=== PATIENT | female | born 1975 | race Caucasian/White ===

== ENCOUNTER 2017-11-25 18:52 | Emergency (ER) | payer BC ==
[2017-11-25 19:56] LABS: #Basophils 0.1 thou/uL (0.0-0.2); #Eosinphils 0.1 thou/uL (0.0-0.7); #Lymphocytes 2.7 thou/uL (1.20-3.40); #Monocytes 0.6 thou/uL (0.11-0.59); #Neutrophils 6.1 thou/uL (1.40-6.50); %Basophils 0.9 % (0.0-1.0); %Eosinophils 0.7 % (0.0-10.0); %Lymphocytes 28.1 % (21.0-51.0); %Monocytes 6.5 % (0.0-10.0); %Neutrophils 63.7 % (42.0-75.0); Hemoglobin 14.6 g/dL (12.0-16.0); Mean Corpuscular HGB CONC 34.5 g/dL (32.0-36.0); Mean Corpuscular Hemoglobin 30.6 pg (27.0-31.0); Mean Corpuscular Volume 88.8 fl (81.0-99.0); Mean Platelet Volume 6.3 fL (7.4-10.4); Platelet Count 332 thou/uL (130-400); Red Blood Cell (RBC) Count 4.75 mill/uL (4.20-5.40); White Blood Cell (WBC) Count 9.6 thou/uL (4.8-10.8)
[2017-11-25 20:03] LABS: BHCG - Serum Negative (NEGATIVE); Pregs Control Background? CLEAR/WHITE (CLR/WHITE); Pregs Control Bar Appear? YES (CONTROL BAR)
[2017-11-25 20:12] LABS: ALT (SGPT) 14 U/L (8-55); AST (SGOT) 14 U/L (5-34); Albumin 4.5 g/dL (3.5-5.0); Alkaline Phosphatase 55 U/L (40-150); Anion Gap 20 mmol/L (10-20); BUN (Urea Nitrogen) 7 mg/dL (7.0-18.7); Bilirubin, Total 0.5 mg/dL (0.2-1.2); Calc. Creatinine Clearance 0 mL/min (70-130); Calcium 9.9 mg/dL (7.8-10.44); Carbon Dioxide 17 mmol/L (22-29); Chloride 106 mmol/L (98-107); Estimated GFR-MDRD 65; Globulin 3.6 g/dL (2.4-3.5); Glucose 97 mg/dL (70-105); Potassium 3.5 mmol/L (3.5-5.1); Protein, Total 8.1 g/dL (6.0-8.3); Sodium 139 mmol/L (136-145)
[2017-11-25 20:28] LABS: Thyroid Stimulating Hormone 4.6079 uIU/mL (0.35-4.94)
== END 2017-11-25 20:57 | disposition home or self-care (01) ==
LOC: SCSER 18:52
DX: F41.0 Panic disorder [episodic paroxysmal anxiety] (principal); G43.909 Migraine, unspecified, not intractable, without status migrainosus; Z79.899 Other long term (current) drug therapy
CPT/HCPCS: 36415; 80053; 84443; 84703; 85025; 93005

== ENCOUNTER 2017-12-24 15:08 | Outpatient (CLI) | payer BC ==
[~2017-12-24 15:08] MED LIST: Magnevist 469MG/ML 20 ML VIAL ONE
--- NOTE | 2017-12-24 16:22 | MRI ---
EXAM: BRAIN MRI WITH AND WITHOUT CONTRAST 12/24/17 HISTORY: Chronic migraine headache without aura. COMPARISON: None. TECHNIQUE: Brain MRI is performed with and without intravenous gadolinium administration. Multisequential, multi planar imaging is performed. FINDINGS: No hemorrhage on the axial gradient echo sequence. No parenchymal mass, mass effect or midline shift. Brain volume is age appropriate. Cortical birmingham-whi te matter differentiation is preserved. Ventricles and sulci are patent and symmetric. Central arterial flow voids are maintained. Absent restricted diffusion. Calvarium has an appropriate T1 marrow signal intensity. Midline parenchymal structures are unremarka ble. No significant T2 or FLAIR white matter hyperintensities. Adequate aeration of the sinuses and mastoid air cells. No pathologic enhancement of the brain parenc hyma. On the sagittal postcontrast images, the pituitary gland has a slight convexed appearance and measure s 7 mm in the craniocaudal dimension. If there is concern for microadenoma, dedicated pituitary olesya col MRI is recommended. IMPRESSION: 1. No pathologic enhancement of the brain parenchyma. 2. No abnormal white matter hyperintensity. 3. Fullness of the pituitary gland, atypical for a patient of this age. If there is concern for a microadenoma, consider MRI with pituitary gland protocol. POS: [facility]
== END 2017-12-24 15:09 | disposition home or self-care (01) ==
LOC: SCSMRI 15:08
PROVIDERS: ATTEND Psychiatry & Neurology Neurology
DX: G43.719 Chronic migraine without aura, intractable, without status migrainosus (principal); R47.89 Other speech disturbances; E23.6 Other disorders of pituitary gland
CPT/HCPCS: 70553; A9579

== ENCOUNTER 2018-01-21 10:24 | Outpatient (CLI) | payer BC ==
--- NOTE | 2018-01-21 15:35 | MRI ---
PRE AND POSTCONTRAST ENHANCED MRI IMAGES OF PITUITARY: HISTORY: Fullness seen on patient's recent MRI of the brain of the pituitary. FINDINGS: Multiplanar, multisequence pre- and postcontrast-enhanced MRI images of the pituitary are obtained. As noted by the radiation / chemistry technician from Dr. Hickey, there is some fullness seen in the pituitary. High-resolu tion pituitary images demonstrate no evidence of pituitary masses. No abnormal areas of heterogeneit y seen in the pituitary. No signal abnormalities seen on the T2 weighted coronal sequences. No abno rmality is seen in the anterior posterior pituitary region. The pituitary infundibulum is unremarkab le. POS: [facility]
== END 2018-01-21 10:25 | disposition home or self-care (01) ==
LOC: SCSMRI 10:24
PROVIDERS: ATTEND Psychiatry & Neurology Neurology
DX: E23.7 Disorder of pituitary gland, unspecified (principal)
CPT/HCPCS: 70553

== ENCOUNTER 2018-03-31 12:59 | Outpatient (CLI) | payer BC ==
--- NOTE | 2018-03-31 16:23 | ULT ---
RIGHT AXILLARY ULTRASOUND: HISTORY: The patient has been diagnosed with invasive ductal carcinoma. Right axillary tenderness and pain. COMPARISON: None. CORRELATION: Mammograms and ultrasound performed at [facility] [place] in March 2018. TECHNIQUE: Targeted sonographic imaging of the right axilla was performed. Static images were reviewed. Real-t chester imaging was performed in the presence of the radiologist and by the radiologist. FINDINGS: Static real-time images demonstrate soft tissue echotexture. There is a right axillary lymph node me asuring 2 cm in maximum dimension with a well preserved fatty hilum. No evidence of abnormal lymph n odes/enlarged lymph nodes in the right axilla. IMPRESSION: Unremarkable right axillary ultrasound. POS: [facility]
== END 2018-03-31 13:00 | disposition home or self-care (01) ==
LOC: ULT 12:59
PROVIDERS: ATTEND Internal Medicine Hematology & Oncology
DX: C50.611 Malignant neoplasm of axillary tail of right female breast (principal)
CPT/HCPCS: 76999

== ENCOUNTER 2018-04-01 09:26 | Outpatient (CLI) | payer BC ==
[2018-04-01] MEDS ORDERED: Iopamidol 370 76% 100 ML VIAL ONE (11:15)
--- NOTE | 2018-04-01 12:13 | CT ---
CT OF THE CHEST WITH IV CONTRAST CT OF THE ABDOMEN AND PELVIS WITH IV CONTRAST: Date: 04-01-18 Provided Clinical History: Breast cancer. FINDINGS: There is a 2.3 cm enhancing right breast mass medially which may reflect the provided clinical histor y of breast cancer. The heart, pericardium, and great vessels appear unremarkable. There is no evidence for thoracic lymp h node enlargement. The lungs are free of significant opacity. The airway appears patent and of tresa l caliber. No pleural fluid or pneumothorax apparent. The liver, spleen, pancreas, kidneys, and adrenal glands demonstrate an unremarkable CT appearance. There is no bowel dilatation, inflammatory fat stranding, free fluid or lymph node enlargement appare nt. Physiologic changes involve the uterus and adnexa. Occasional vascular calcifications are seen. The osseous structures demonstrate no concerning osteoblastic or osteolytic lesions. IMPRESSION: 1. Right breast mass may reflect the provided clinical history of breast cancer. There is no evidence for metastatic disease by CT. POS: [facility]
--- NOTE | 2018-04-01 15:06 | NM ---
RADIONUCLIDE BONE SCAN: HISTORY: Breast cancer. Initial staging. FINDINGS: Heterogeneous uptake at the right foot and left forefoot have the appearance of degenerative changes. Uptake at the right great toe is much more likely related to trauma or arthritis than metastatic pr ocess. Heterogeneous uptake of the shoulders and hips have the appearance of degenerative changes. Subtle u ptake at the midline face is likely related to mucosal disease. IMPRESSION: No scintigraphic evidence of skeletal metastases. POS: [facility]
== END 2018-04-01 09:27 | disposition home or self-care (01) ==
LOC: CT 09:26
PROVIDERS: ATTEND Internal Medicine Hematology & Oncology
DX: C50.811 Malignant neoplasm of overlapping sites of right female breast (principal)
CPT/HCPCS: 71260; 74177; 78306; A9503

== ENCOUNTER 2018-04-07 08:27 | Day surgery (SDC) | payer BC ==
[2018-04-07] MEDS ORDERED: Lidocaine 2% 10 ML INJ ONE (10:07)
[2018-04-07] MEDS ORDERED: Bupivacaine/Epinephrine 0.25% 30 ML VIAL ONE (10:07)
[2018-04-07] MEDS ORDERED: Midazolam HCl 2 mg/2 ml Vial ONE ×2 (10:09→10:13)
[2018-04-07] MEDS ORDERED: Propofol 500 MG/50 ML VIAL ONE (10:09)
[2018-04-07] MEDS ORDERED: Fentanyl 100 MCG/2 ML VIAL ONE (10:09)
[2018-04-07] MEDS ORDERED: CEFAZOLIN/Water 2 GM/20 ML SYRINGE ONE (10:13)
--- NOTE | 2018-04-07 12:30 | RAD ---
CHEST ONE VIEW: History: Mediport placement. FINDINGS: Heart size is within normal limits. Mediastinal structures are unremarkable. Left sided Mediport cath eter is seen. The catheter tip overlies the superior vena cava. No signs of pneumothorax. IMPRESSION: Placement of a left sided Mediport catheter. No signs of pneumothorax. POS: [facility]
[2018-04-07] MEDS ORDERED: PROPOFOL 200 MG/20 ML VIAL ONE (14:47)
--- NOTE | 2018-04-07 19:39 | OP ---
DATE OF PROCEDURE: 04/07/2018 PREOPERATIVE DIAGNOSIS: Right breast cancer, locally invasive, ER/NV positive, HER2/royer positive. POSTOPERATIVE DIAGNOSIS: Right breast cancer, locally invasive, ER/NV positive, HER2/royer positive. PROCEDURE: Left internal jugular vein tunneled catheter with subcutaneous port (MediPort, CT injecta ble). SURGEON: Tato Singletary MD ANESTHESIA: Local. None. COMPLICATIONS: None. SPECIMEN: None. FINDINGS: The tip of the catheter is at the atriocaval junction. PROCEDURE IN DETAIL: The patient was taken to the operating room, placed supine on the table. After sedation was obtained, bilateral neck, chest, abdomen, and breast were prepped and draped in a steri le fashion. Local anesthetic was infiltrated over the left internal jugular vein. Internal jugular vein cannulated using a 22-gauge finder needle followed by a Seldinger needle. Wire was passed into the superior vena cava under fluoroscopic guidance. A small vilma was made at the wire entrance site. A separate 3 cm incision was made in the left upper chest. Subcutaneous pocket made below the lowe r incision. Tubing for the MediPort tunneled from the inferior to superior incision. Introducer she ath was placed over the wire into the superior vena cava under fluoroscopic guidance. The dilator an d wire were removed. The end of the catheter was threaded into the sheath. The sheath was peeled aw ay. The tip of the catheter is at the atriocaval junction. MediPort tubing was cut to fit the MediP ort at the lower incision, connected to the MediPort. The MediPort was sewn to the chest wall in the subcutaneous pocket using Prolene suture. MediPort flushes and draws blood without difficulty. It was flushed with a heparin flush. The wounds were all irrigated and closed using 4-0 Monocryl and De rmabond. The MediPort was left accessed with the enclosed access needle. The patient is en route to recovery in stable condition. All instrument counts, needle counts, lap counts were correct.
== END 2018-04-07 11:55 | disposition home or self-care (01) ==
LOC: SDC 08:27
PROVIDERS: ATTEND Surgery
PROC: 0JH60WZ Insertion of Totally Implantable Vascular Access Device into Chest Subcutaneous Tissue and Fascia, Open Approach (ICD-10-PCS; principal; 2018-04-07)
PROC: 05HN33Z Insertion of Infusion Device into Left Internal Jugular Vein, Percutaneous Approach (ICD-10-PCS; principal; 2018-04-07)
PROC: B514YZA Fluoroscopy of Left Jugular Veins using Other Contrast, Guidance (ICD-10-PCS; principal; 2018-04-07)
DX: C50.911 Malignant neoplasm of unspecified site of right female breast (principal); G43.909 Migraine, unspecified, not intractable, without status migrainosus; F32.9 Major depressive disorder, single episode, unspecified; F41.9 Anxiety disorder, unspecified; J45.909 Unspecified asthma, uncomplicated; Z87.891 Personal history of nicotine dependence; Z88.8 Allergy status to other drugs, medicaments and biological substances; Z79.899 Other long term (current) drug therapy; Z17.0 Estrogen receptor positive status [ER+]
CPT/HCPCS: 71045; C1788; J1642; J2250; J2704; J3010

== ENCOUNTER 2018-04-12 08:51 | Outpatient (CLI) | payer BC | END 2018-04-12 08:52 | disposition home or self-care (01) | LOC: BICMRI 08:51 | PROVIDERS: ATTEND Internal Medicine Hematology & Oncology | DX: C50.811 Malignant neoplasm of overlapping sites of right female breast (principal) | CPT/HCPCS: C8908 ==

== ENCOUNTER 2018-04-20 13:45 | Outpatient (CLI) | payer BC | END 2018-04-20 13:46 | disposition home or self-care (01) | LOC: ULT 13:45 | PROVIDERS: ATTEND Internal Medicine Hematology & Oncology | DX: Z51.11 Encounter for antineoplastic chemotherapy (principal); C50.811 Malignant neoplasm of overlapping sites of right female breast; Z79.899 Other long term (current) drug therapy; I08.1 Rheumatic disorders of both mitral and tricuspid valves | CPT/HCPCS: 93306 ==

== ENCOUNTER 2018-06-16 08:30 | Outpatient (CLI) | payer BC | END 2018-06-16 08:31 | disposition home or self-care (01) | LOC: BICULT 08:30 | PROVIDERS: ATTEND Internal Medicine Hematology & Oncology | DX: C50.811 Malignant neoplasm of overlapping sites of right female breast (principal) ==

== ENCOUNTER 2018-07-29 10:04 | Outpatient (CLI) | payer BC ==
[2018-07-29 11:54] LABS: #Basophils 0.1 thou/uL (0.0-0.2); #Eosinphils 0.3 thou/uL (0.0-0.7); #Lymphocytes 1.8 thou/uL (1.20-3.40); #Monocytes 0.4 thou/uL (0.11-0.59); #Neutrophils 3.2 thou/uL (1.40-6.50); %Basophils 1.8 % (0.0-1.0); %Eosinophils 4.8 % (0.0-10.0); %Lymphocytes 31.4 % (21.0-51.0); %Monocytes 7.2 % (0.0-10.0); %Neutrophils 54.8 % (42.0-75.0); Hemoglobin 12.4 g/dL (12.0-16.0); Mean Corpuscular HGB CONC 32.2 g/dL (32.0-36.0); Mean Corpuscular Hemoglobin 30.4 pg (27.0-31.0); Mean Corpuscular Volume 94.6 fL (78.0-98.0); Mean Platelet Volume 7.2 fL (7.4-10.4); Platelet Count 331 thou/uL (130-400); RBC Distribution Width 15.2 % (11.5-14.5); Red Blood Cell (RBC) Count 4.06 mill/uL (4.20-5.40); White Blood Cell (WBC) Count 5.8 thou/uL (4.8-10.8)
== END 2018-07-29 10:05 | disposition home or self-care (01) ==
LOC: LABBT 10:04
PROVIDERS: ATTEND Surgery
DX: Z01.812 Encounter for preprocedural laboratory examination (principal); C50.911 Malignant neoplasm of unspecified site of right female breast
CPT/HCPCS: 85025

== ENCOUNTER 2018-08-01 07:09 | Day surgery (SDC) | payer BC ==
[2018-07-29 10:55] VITALS: BMI 21.4
[2018-08-01] MEDS ORDERED: Sodium Chloride 0.9% 0 ML ONE (09:36)
[2018-08-01] MEDS ORDERED: CEFAZOLIN/Water 2 GM/20 ML SYRINGE ONE (10:18)
[2018-08-01] MEDS ORDERED: Bupivacaine/Epinephrine 0.25% 30 ML VIAL ONE (11:44)
--- NOTE | 2018-08-01 11:45 | NM ---
RIGHT BREAST LYMPHOSCINTIGRAPHY: HISTORY: Malignant neoplasm of unspecified site of the right female breast. RADIOPHARMACEUTICAL: 407 mCi Technetium 99m filtered sulfur colloid injected in the right periareolar breast. FINDINGS: Planar images of the head, neck, chest, and axillae were obtained. Multiple foci of increased uptake are seen in the right axilla. No tracer localization is seen in the internal mammary chains or the left axilla. IMPRESSION: [place] lymph node (S) in the right axilla. POS: [facility]
[2018-08-01] MEDS ORDERED: Fentanyl 100 MCG/2 ML VIAL ONE ×4 (11:46→15:04)
[2018-08-01] MEDS ORDERED: ePHEDrine/0.9% NaCl/PF SYRINGE 50 mg/10 ml ONE (12:34)
[2018-08-01] MEDS ORDERED: PROPOFOL 200 MG/20 ML VIAL ONE (12:34)
[2018-08-01] MEDS ORDERED: Ondansetron HCl/PF 4 MG/2 ML Vial ONE (12:34)
[2018-08-01] MEDS ORDERED: Lidocaine 1% PF 5 ML VIAL ONE (12:34)
[2018-08-01] MEDS ORDERED: PHENYLEPHRINE-NS 100 MCG/ML 10 ML SYRINGE ONE (12:34)
[2018-08-01] MEDS ORDERED: HYDROmorphone 2 MG/ML VIAL ONE (14:25)
--- NOTE | 2018-08-01 15:28 | MMO ---
SPECIMEN RADIOGRAPH: HISTORY: Localization of biopsy clip. COMPARISON: Localization exam done earlier today.. FINDINGS: The biopsy clip in question is present on the specimen radiograph. IMPRESSION: Biopsy clip which is present on the specimen radiograph. POS: [facility]
[2018-08-01] MEDS ORDERED: HYDROcodone/Acetaminophen 5/325 mg Tablet ONE (15:38)
--- NOTE | 2018-08-01 16:10 | MMO ---
RIGHT BREAST NEEDLE LOCALIZATION FOR SURGICAL EXCISION: COMPARISON: None. HISTORY: Known right breast cancer. The patient has undergone chemotherapy. FINDINGS: Successful right breast needle localization for surgery. The patient's breast is placed in the CC pr ojection. [place] needle and wire were deployed such that the needle and wire are adjacent to the clip . TECHNIQUE: Consent was obtained to perform a right breast needle localization. The clip was identified. Via th e medial approach, a 7 cm [place] needle was advanced adjacent to the clip. The right breast was then placed under CC compression. Clip position was confirmed and the wire was deployed. Post-deployment image was obtained. The needle and wire are adjacent to the clip. The clip was secured to the yinka ent. The patient tolerated the procedure well. No immediate or postprocedure complications. IMPRESSION: Successful right breast needle localization. POS: [facility]
--- NOTE | 2018-08-02 09:41 | OP ---
DATE OF PROCEDURE: 08/01/2018 PREOPERATIVE DIAGNOSIS: Right breast cancer, status post neoadjuvant chemotherapy. POSTOPERATIVE DIAGNOSIS: Right breast cancer, status post neoadjuvant chemotherapy. PROCEDURE: 1. Right partial mastectomy after needle localization. 2. Right sentinel node biopsy after lymphoscintigraphy. 3. Removal of MediPort. SURGEON: Tato Singletary M.D. ANESTHESIA: General. ESTIMATED BLOOD LOSS: Minimal. COMPLICATIONS: None. SPECIMEN: 1. Right breast mass marked with 2 short superior, 1 long lateral and sent to path for final diagnos is. 2. Right axillary deep axillary node removed using sentinel node protocol. PROCEDURE IN DETAIL: The patient was taken to the operating room and placed supine on the table. Af ter general anesthetic was obtained, 5 mL of methylene blue dye was infiltrated in the right nipple m assaged for 10 minutes. The bilateral chest, right axilla, right arm were all prepped and draped in a sterile fashion. A curved incision made inferior to the hairline of the right axilla. Neoprobe wa s used to find an area of increased uptake. Multiple blue nodes are seen. These are removed, on the back table high counts are obtained. The background count drops to near 0. The wound is irrigated and closed using 3-0 Vicryl, 4-0 Monocryl, and Dermabond. Next, an incision is made on the right med ial areolar border and flaps are raised superior, medially, inferiorly, laterally around the end of t he needle localization wire. Specimen was sent to x-ray. Specimen x-ray reveals the clip and abnorm ality to be in the specimen. The wound was irrigated. Local anesthetic was applied. The wound was closed using 3-0 Vicryl, 4-0 Monocryl, and Dermabond. The previous MediPort incision and left upper chest is open. The MediPort was removed and the wound irrigated and closed using 3-0 Vicryl, 4-0 Mon ocryl, and Dermabond. The patient is en route to recovery in stable condition. All instrument count s, needle counts, lap counts are correct.
== END 2018-08-01 16:20 | disposition home or self-care (01) ==
LOC: SDC 07:09
PROVIDERS: ATTEND Surgery
PROC: 0JPT3WZ Removal of Totally Implantable Vascular Access Device from Trunk Subcutaneous Tissue and Fascia, Percutaneous Approach (ICD-10-PCS; principal; 2018-08-01)
PROC: 0HBT0ZZ Excision of Right Breast, Open Approach (ICD-10-PCS; principal; 2018-08-01)
PROC: 07B50ZX Excision of Right Axillary Lymphatic, Open Approach, Diagnostic (ICD-10-PCS; principal; 2018-08-01)
DX: C50.911 Malignant neoplasm of unspecified site of right female breast (principal); G43.909 Migraine, unspecified, not intractable, without status migrainosus; F32.9 Major depressive disorder, single episode, unspecified; F41.9 Anxiety disorder, unspecified; K21.9 Gastro-esophageal reflux disease without esophagitis; J45.20 Mild intermittent asthma, uncomplicated; Z87.891 Personal history of nicotine dependence; Z92.21 Personal history of antineoplastic chemotherapy; Z17.0 Estrogen receptor positive status [ER+]; Z79.899 Other long term (current) drug therapy; Z88.5 Allergy status to narcotic agent; Z88.8 Allergy status to other drugs, medicaments and biological substances
CPT/HCPCS: 19281; 76098; 78195; 88307; 88342; 96374; 96376; A4216; A9541; J1170; J2001; J2405; J2704; J3010; Q9968

== ENCOUNTER 2018-10-18 12:45 | Outpatient (CLI) | payer BC | END 2018-10-18 12:46 | disposition home or self-care (01) | LOC: ULT 12:45 | PROVIDERS: ATTEND Internal Medicine Hematology & Oncology | DX: C50.811 Malignant neoplasm of overlapping sites of right female breast (principal); I08.1 Rheumatic disorders of both mitral and tricuspid valves | CPT/HCPCS: 93306 ==

== ENCOUNTER 2018-12-30 13:54 | Outpatient (CLI) | payer BC ==
--- NOTE | 2018-12-30 15:15 | ULT ---
THYROID ULTRASOUND: COMPARISON: 02/16/2017. HISTORY: Multinodular goiter. Followup exam. TECHNIQUE: Multiplanar, birmingham scale, and color Doppler images were obtained in a thyroid ultrasound. FINDINGS: Numerous cysts are seen in both thyroid lobes. Very small nodules are seen in both thyroid lobes. T he largest measures 5 mm in greatest dimension. These nodules and cysts are smaller than on the prio r examination. All the nodules are well circumscribed and do not contain suspicious calcifications. The thyroid lobes measure 3.9 and 3.5 cm in length on the right and left, respectively. IMPRESSION: Decreased size of thyroid nodules and cysts compared to the prior ultrasound. POS: [facility]
== END 2018-12-30 13:55 | disposition home or self-care (01) ==
LOC: SCSULT 13:54
PROVIDERS: ATTEND Otolaryngology Plastic Surgery within the Head & Neck
DX: E04.2 Nontoxic multinodular goiter (principal)
CPT/HCPCS: 76536

== ENCOUNTER 2019-01-23 12:59 | Outpatient (CLI) | payer BC ==
--- NOTE | 2019-01-23 16:15 | NM ---
NUCLEAR MEDICINE MUGA SCAN: RADIOPHARMACEUTICAL: 27.4 mCi Technetium 99m tagged RBC, IV. CLINICAL HISTORY: Encounter for followup examination after completed treatment for malignant neoplasm. FINDINGS: Calculated ejection fraction is 55.8%. Gated imaging is performed which reveals contractility of the left ventricle. IMPRESSION: Calculated left ventricular ejection fraction of 55.8%. POS: [facility]
== END 2019-01-23 13:00 | disposition home or self-care (01) ==
LOC: NM 12:59
PROVIDERS: ATTEND Internal Medicine Hematology & Oncology
DX: C50.811 Malignant neoplasm of overlapping sites of right female breast (principal)
CPT/HCPCS: 78472; A9604

== ENCOUNTER 2019-03-13 11:11 | Outpatient (CLI) | payer BC ==
--- NOTE | 2019-03-13 11:24 | RAD ---
Chest 2 views HISTORY: Dyspnea. COMPARISON: 04/07/2018. FINDINGS: Cardiac silhouette and pulmonary vasculature are unremarkable. Mediastinum is midline. No c onfluent airspace consolidation, pneumothorax, or pleural fluid are evident. IMPRESSION: No active cardiopulmonary abnormalities are demonstrated.
== END 2019-03-13 11:12 | disposition home or self-care (01) ==
LOC: RAD 11:11
PROVIDERS: ATTEND Internal Medicine Critical Care Medicine
DX: R06.00 Dyspnea, unspecified (principal)
CPT/HCPCS: 71046

== ENCOUNTER 2019-03-21 09:58 | Outpatient (CLI) | payer BC ==
--- NOTE | 2019-03-21 10:55 | MMO ---
Bilateral MAMMO Bilat Diag DDI+JOSE LUIS. CLINICAL HISTORY: Patient is 44 years old and is seen for diagnostic exam. The patient has the following family history of breast cancer: mother, at age 65. The patient has a history of malignant (generic) in the right breast at age 43. The patient has a history of right Lumpectomy in 2018 - malignant. VIEWS: The views performed were: bilateral craniocaudal with tomosynthesis; bilateral mediolateral oblique with tomosynthesis; bilateral mediolateral; and bilateral exaggerated craniocaudal. FILMS COMPARED: The present examination has been compared to a prior imaging study performed at [facility] on 03/21/2019. MAMMOGRAM FINDINGS: The breasts are heterogeneously dense, which could obscure a lesion on mammography. There is an area of architectural distortion with associated skin thickening and post-surgical scar seen in the right breast. There are no suspicious masses, suspicious calcifications, or new areas of architectural distortion. IMPRESSION: A ROUTINE FOLLOW-UP MAMMOGRAM IN 1 YEAR IS RECOMMENDED. THE RESULTS OF THIS EXAM WERE SENT TO THE PATIENT. ACR BI-RADS Category 2 - Benign finding MAMMOGRAPHY NOTE: 1. A negative mammogram report should not delay a biopsy if a dominant of clinically suspicious mass is present. 2. Approximately 10% to 15% of breast cancers are not detected by mammography. 3. Adenosis and dense breasts may obscure an underlying neoplasm.
--- NOTE | 2019-03-21 12:09 | ULT ---
RIGHT BREAST AND CHEST WALL ULTRASOUND: HISTORY: Palpable mass along the right lateral chest wall. History of right breast cancer. COMPARISON: Mammogram from 03/21/2019. CT chest, abdomen, and pelvis from 04/01/2018. TECHNIQUE: Multiplanar birmingham-scale and color Doppler images were obtained in a target ultrasound in the area of p alpable abnormality along the right chest wall. FINDINGS: Along the right chest wall, there is a well circumscribed, hypoechoic mass, without shadowing, measur ing approximately 5 mm in greatest dimension. This appears just beneath the skin and superficial to musculature, which may represent the patient's pectoralis major muscle, the latissimus dorsi muscle, or the deltoid muscle. IMPRESSION: Solid nodule along the right chest wall. When compared to the prior CT, a tiny abnormal ity is seen just beneath the skin surface, in this region, on the CT from March 2018. If this lesion i s the previously seen lesion, then this area would seem to have gotten larger. However, it is inconcl usive whether this is the exact lesion seen on prior CT of the chest. A repeat chest CT or a PET CT should be performed for further evaluation. POS: [facility]
== END 2019-03-21 09:59 | disposition home or self-care (01) ==
LOC: BICMAMMO 09:58
PROVIDERS: ATTEND Internal Medicine Hematology & Oncology
DX: C50.811 Malignant neoplasm of overlapping sites of right female breast (principal); Z80.3 Family history of malignant neoplasm of breast; Z85.3 Personal history of malignant neoplasm of breast
CPT/HCPCS: 77066; G0279

== ENCOUNTER 2019-09-01 13:54 | Outpatient (CLI) | payer BC ==
[~2019-09-01 13:54] MED LIST changes: +Gadobenate Dimeglumine 529 MG/1 ML (20ML VIAL) ONE; -Magnevist 469MG/ML 20 ML VIAL ONE
--- NOTE | 2019-09-01 15:22 | MRI ---
MRI BRAIN WITH AND WITHOUT IV CONTRAST: HISTORY: New daily persistent headache. History of breast cancer COMPARISON: 12/14/2017, 01/21/2018 CORRELATION: None FINDINGS: No restricted diffusion is seen. No evidence of infarct, hemorrhage, mass, midline shift or abnormal extra-axial fluid collections is noted. No abnormal postcontrast enhancement is seen. The ventricular size is appropriate and the basilar cisterns are patent. The pituitary gland is stable. There is minimal mucosal disease in the paranasal sinuses. IMPRESSION: No evidence of acute intracranial process or mass.
== END 2019-09-01 13:55 | disposition home or self-care (01) ==
LOC: SCSMRI 13:54
PROVIDERS: ATTEND Family Medicine
DX: G44.52 New daily persistent headache (NDPH) (principal); C50.911 Malignant neoplasm of unspecified site of right female breast; R27.0 Ataxia, unspecified
CPT/HCPCS: 70553; A9577

== ENCOUNTER 2020-05-02 14:00 | Outpatient (CLI) | payer BC ==
--- NOTE | 2020-05-02 15:10 | MMO ---
Bilateral MAMMO Bilat Diag DDI+JOSE LUIS. CLINICAL HISTORY: Patient is 45 years old and is seen for diagnostic exam. The patient has the following family history of breast cancer: mother, at age 65. The patient has a history of malignant (generic) in the right breast at age 43. The patient has a history of right Lumpectomy in 2018 - malignant. VIEWS: The views performed were: bilateral craniocaudal with tomosynthesis; bilateral mediolateral oblique with tomosynthesis; and bilateral mediolateral with tomosynthesis. FILMS COMPARED: The present examination has been compared to prior imaging studies performed at [facility] on 10/23/2019, and at [facility] on 03/21/2019. This study has been interpreted with the assistance of computer-aided detection. MAMMOGRAM FINDINGS: The breasts are heterogeneously dense, which could obscure a lesion on mammography. Finding 1: There is a post-surgical scar seen in the upper-inner region of the right breast. Finding 2: There is a stable area of skin thickening seen in the right breast. There are no suspicious masses, suspicious calcifications, or new areas of architectural distortion. IMPRESSION: THERE IS NO MAMMOGRAPHIC EVIDENCE OF MALIGNANCY. A ROUTINE FOLLOW-UP MAMMOGRAM IN 1 YEAR IS RECOMMENDED. THE RESULTS OF THIS EXAM WERE SENT TO THE PATIENT. ACR BI-RADS Category 2 - Benign finding MAMMOGRAPHY NOTE: 1. A negative mammogram report should not delay a biopsy if a dominant of clinically suspicious mass is present. 2. Approximately 10% to 15% of breast cancers are not detected by mammography. 3. Adenosis and dense breasts may obscure an underlying neoplasm. Reported by: CHEYENNE MEJIA MD Electonically Signed: [id number]
== END 2020-05-02 14:01 | disposition home or self-care (01) ==
LOC: BICMAMMO 14:00
PROVIDERS: ATTEND Internal Medicine Hematology & Oncology
DX: Z08 Encounter for follow-up examination after completed treatment for malignant neoplasm (principal); Z85.3 Personal history of malignant neoplasm of breast
CPT/HCPCS: 77066; G0279

== ENCOUNTER 2020-09-02 07:46 | Outpatient (CLI) | payer BC, OTHER ==
--- NOTE | 2020-09-02 13:28 | HP ---
She is scheduled for surgery on 09/05. HISTORY OF PRESENT ILLNESS: Ms. Rendon is a 45-year-old white female, G1, P0, A1, who has a history of a stage T2 N0 M0, ER/UT positive, HER-2 positive intraductal carcinoma of the breast. She has been followed by Dr. Adamson as her oncologist and has had adjuvant therapy trials including tamoxifen and the Zoladex. She did not tolerate either of these well and had severe depression and continues to have a chemotherapy brain. Her ovarian function returned in 2018 and has had irregular bleeding since. She also has significant flow at times and cramping pain. She did have Kyleena IUD placed in November 2019, which did improve her bleeding profile and cramping, but due to the fact that it is a UT positive, progesterone positive device and also her ovaries continued to function with estrogen in her breast cancer phenotype, Dr. Adamson recommended that she would be served well to have an a hysterectomy and BSO. She does have a high risk of breast cancer recurrence and therefore, she would benefit from the hysterectomy due to the irregular bleeding issues and heavy flow and the ovarian hormone stimulation of her breast cancer. PAST MEDICAL HISTORY: Significant for asthma, chronic depression, and migraine headaches. PAST SURGICAL HISTORY: She had lumpectomy of the right breast with chemoradiation in October 2018. She has also had a tonsillectomy. FAMILY HISTORY: Significant for malignant neoplasm in her mother of the breast and heart disease in her father. SOCIAL HISTORY: Occasional alcohol use. No current smoking, but has been a smoker in the past. CURRENT MEDICATIONS: 1. Albuterol inhaler two puffs q.4 hours p.r.n. 2. Atomoxetine 40 mg tablet daily. 3. Bupropion 300 mg XL tablet daily. 4. Clonazepam 0.5 mg tablet one p.o. t.i.d. p.r.n. 5. Intrarosa vaginal insert every other day for atrophic vaginitis. 6. Ipratropium bromide inhaler two sprays q.6 hours as needed. 7. She has a Kyleena in place. 8. Sertraline 50 mg tablet daily. 9. Sumatriptan 100 mg as p.r.n. for migraines. PHYSICAL EXAMINATION: VITAL SIGNS: Her height is 5 feet 4 inches, weight 125 pounds, and BMI 21.5. Blood pressure 108/64, pulse 90, respirations 18, and O2 saturation 99% on room air. HEENT: Within normal limits. CHEST: Clear to auscultation. HEART: Regular rate and rhythm. S1 and S2 heart sounds. No murmurs, rubs, or gallops. BREASTS: She has had a lumpectomy in the right breast noted. No present masses palpable. ABDOMEN: Soft, nontender, and nondistended. No palpable masses. : Uterus, vulva, and vagina had no lesions. Cervix had no lesions. She is up-to-date with Pap smear screening. In past 5 years, HPV and pap cells normal. Uterus is small and nontender. Adnexa, nontender with no masses. ASSESSMENT: This is a 45-year-old white female with ER/UT/HER-2 positive breast cancer, intolerant to tamoxifen or Zoladex therapy. The patient is also experiencing pelvic pain and irregular bleeding with resumption of her ovarian function. PLAN: Plan is to proceed with robotic FARA-BSO for adjuvant therapy for breast cancer and also complaints of pelvic pain and menorrhagia. Risks and benefits of procedure have been discussed in detail, she is set for surgery on 09/05. Job ID: [id number]
[2020-09-02 15:09] LABS: BHCG - Serum Negative (NEGATIVE); Pregs Control Background? CLEAR/WHITE (CLR/WHITE); Pregs Control Bar Appear? YES (CONTROL BAR)
== END 2020-09-02 07:47 | disposition home or self-care (01) ==
LOC: LABBT 07:46
PROVIDERS: ATTEND Obstetrics & Gynecology
DX: Z01.812 Encounter for preprocedural laboratory examination (principal); N92.0 Excessive and frequent menstruation with regular cycle; N94.6 Dysmenorrhea, unspecified; Z85.3 Personal history of malignant neoplasm of breast
CPT/HCPCS: 84703

== ENCOUNTER 2020-09-05 09:34 | Day surgery (SDC) | payer BC ==
[2020-09-02 14:30] LABS: Hemoglobin 14.9 g/dL (12.0-16.0); Mean Corpuscular HGB CONC 33.6 g/dL (32.0-36.0); Mean Corpuscular Hemoglobin 32.2 pg (27.0-31.0); Mean Corpuscular Volume 95.7 fL (78.0-98.0); Mean Platelet Volume 7.1 fL (7.4-10.4); Platelet Count 300 thou/uL (130-400); RBC Distribution Width 11.9 % (11.5-14.5); Red Blood Cell (RBC) Count 4.65 mill/uL (4.20-5.40); White Blood Cell (WBC) Count 7.8 thou/uL (4.8-10.8)
[2020-09-03 11:05] LABS: SARS-CoV-2 MS2 Positive; SARS-CoV-2 N Gene Negative; SARS-CoV-2 S Gene Negative; SARS-CoV-2 by NAA Not Detected (NotDetected); SARS-CoV-2 orf1ab Negative
[2020-09-04 14:13] VITALS: BMI 21.9
[2020-09-05] MEDS ORDERED: Gabapentin 300 MG CAP ONE (10:01)
[2020-09-05] MEDS ORDERED: CeleCOXIB 100 MG CAP ONE (10:01)
[2020-09-05] MEDS ORDERED: Famotidine/PF 20 mg/2ml Vial ONE (10:01)
[2020-09-05] MEDS ORDERED: Dexamethasone 20 MG/5 ML VIAL ONE (10:44)
[2020-09-05] MEDS ORDERED: Rocuronium Bromide 10 MG/ML (10ML VIAL) ONE (10:44)
[2020-09-05] MEDS ORDERED: PROPOFOL 200 MG/20 ML VIAL ONE (10:44)
[2020-09-05] MEDS ORDERED: Glycopyrrolate 0.2 MG/ML 5 ML SYRINGE ONE (10:44)
[2020-09-05] MEDS ORDERED: Ondansetron PF 4 MG/2 ML Vial ONE (10:44)
[2020-09-05] MEDS ORDERED: Lidocaine 1% PF 5 ML VIAL ONE (10:44)
[2020-09-05] MEDS ORDERED: Fentanyl 100 MCG/2 ML VIAL ONE ×4 (10:54→15:14)
[2020-09-05] MEDS ORDERED: Bupivacaine/Epinephrine 0.25% 30 ML VIAL ONE (10:56)
[2020-09-05] MEDS ORDERED: Midazolam HCl 2 mg/2 ml Vial ONE (11:52)
[2020-09-05] MEDS ORDERED: Promethazine HCl 25 MG/ML VIAL IM PRN ×2 (14:31→14:50)
[2020-09-05] MEDS ORDERED: Promethazine HCl 25 MG/ML VIAL SLOW IVP PRN (14:31)
[2020-09-05] MEDS ORDERED: Ondansetron HCl/PF 4 MG/2 ML Vial IVP PRN (14:31)
[2020-09-05] MEDS ORDERED: HYDROcodone/Acetaminophen 5/325 mg Tablet PO PRN ×2 (14:50)
[2020-09-05] MEDS ORDERED: clonazePAM 0.5 MG TAB PO PRN (14:50)
[2020-09-05] MEDS ORDERED: Morphine 4 MG/ML VIAL SLOW IVP PRN (14:50)
[2020-09-05] MEDS ORDERED: Bisacodyl 10 MG SUPP PR PRN (14:50)
[2020-09-05] MEDS ORDERED: traMADol HCl 50 MG TAB PO PRN (14:50)
[2020-09-05] MEDS ORDERED: Zolpidem Tartrate 5 MG TAB PO PRN (14:50)
[2020-09-05] MEDS ORDERED: diphenhydrAMINE 25 MG CAP PO PRN (14:50)
[2020-09-05] MEDS ORDERED: Ondansetron PF 4 MG/2 ML Vial IVP PRN (14:50)
[2020-09-05] MEDS ORDERED: Ondansetron ODT 8 MG TAB PO PRN (14:50)
[2020-09-05] MEDS ORDERED: [UNRECOGNIZED DRUG - OTHER] PO PRN (14:50)
[2020-09-05] MEDS ORDERED: Albuterol Sulfate 1.25 MG/3 ML NEB INH PRN (15:16)
[2020-09-05] MEDS: Ketorolac Tromethamine 30 MG/ML VIAL IVP SCH (16:00)
[2020-09-05] MEDS: Sodium Chloride 0.9% 1,000 ML IV SCH (16:04)
[2020-09-05] MEDS ORDERED: Morphine 2 MG/ML VIAL SLOW IVP PRN (18:16)
[2020-09-05] MEDS: Simethicone Chewable 80 MG TAB PO PRN (19:29)
[2020-09-05] MEDS: Ubidecarenone 50 MG CAP PO SCH (21:43)
[2020-09-06] MEDS: Ketorolac Tromethamine 30 MG/ML VIAL IVP SCH (00:54)
[2020-09-06] MEDS: traMADol HCl 50 MG TAB PO PRN ×2 (02:24→09:01)
[2020-09-06] MEDS ORDERED: Ibuprofen 800 MG TAB PO SCH (06:00)
[2020-09-06] MEDS: Simethicone Chewable 80 MG TAB PO PRN (06:26)
[2020-09-06] MEDS: Sodium Chloride 0.9% 1,000 ML IV SCH ×2 (07:12→07:14)
[2020-09-06 07:14] LABS: Hemoglobin 13.8 g/dL (12.0-16.0); Mean Corpuscular HGB CONC 34.2 g/dL (32.0-36.0); Mean Corpuscular Hemoglobin 32.7 pg (27.0-31.0); Mean Corpuscular Volume 95.8 fL (78.0-98.0); Mean Platelet Volume 6.9 fL (7.4-10.4); Platelet Count 263 thou/uL (130-400); RBC Distribution Width 11.8 % (11.5-14.5); Red Blood Cell (RBC) Count 4.23 mill/uL (4.20-5.40); White Blood Cell (WBC) Count 11.1 thou/uL (4.8-10.8)
[2020-09-06 07:56] VITALS: BP 113/66; TEMP 98.4
[2020-09-06] MEDS ORDERED: Potassium Chloride 10 MEQ TAB PO SCH (08:00)
[2020-09-06] MEDS ORDERED: Lactinex Tablet PO SCH (09:00)
[2020-09-06] MEDS ORDERED: Bupropion 150 MG XL TAB PO SCH (09:00)
[2020-09-06] MEDS ORDERED: Multivit, Therapeutic 1 TAB PO SCH (09:00)
[2020-09-06] MEDS ORDERED: ATOMOXETINE HCL 40 MG PO SCH (09:00)
[2020-09-06] MEDS ORDERED: Cholecalciferol 1,000 UNITS (25 MCG) TAB PO SCH (09:00)
[2020-09-06] MEDS ORDERED: Loratadine 10 MG TAB PO SCH (09:00)
[2020-09-06] MEDS: Ubidecarenone 50 MG CAP PO SCH (09:06)
--- NOTE | 2020-09-06 09:32 | DIS ---
DATE OF ADMISSION: 09/05/2020 DATE OF DISCHARGE: 09/06/2020 DIAGNOSES: 1. Personal history of breast cancer, estrogen and progesterone positive. 2. Menorrhagia. PROCEDURE PERFORMED: Robotic total laparoscopic hysterectomy with bilateral salpingo-oophorectomy. SURGEON: Opal Del Toro MD SUMMARY OF HOSPITAL COURSE: Ms. Rendon is a 45-year-old white female with history of progesterone receptor positive breast cancer, who has had resumption of ovarian function after initial amenorrhea from chemo. She was intolerant of tamoxifen and was receiving Zoladex for adjuvant therapy for her breast cancer under the care of Dr. Mayda Adamson. The patient also developed menorrhagia and was placed with Kyleena IUD, which has a progesterone hormone . In light of the patient's breast cancer history and the menorrhagia, definitive surgical therapy adjuvant therapy for breast cancer, it was recommended to proceed with robotic TLH-BSO. DESCRIPTION OF PROCEDURE: The patient has done well postoperatively. Vital signs have remained stable, and she is ambulating, voiding, and tolerating diet at the time of discharge. Her postop hematocrit is 40.5%. Pain control was adequate with oral medications. She will be discharged home, has a prescription for tramadol 50 mg daily q.6 hours as needed and brdr-eco-upkscvl ibuprofen as directed. Pathology is pending at the time of this dictation. She has followup in 2 and 6 weeks. Job ID: [id number]
--- NOTE | 2020-09-07 08:13 | OP ---
DATE OF PROCEDURE: 09/05/2020 PREOPERATIVE DIAGNOSES: 1. The patient has history of estrogen receptor, progesterone receptor positive breast cancer. 2. Menorrhagia. POSTOPERATIVE DIAGNOSES: 1. The patient has history of estrogen receptor, progesterone receptor positive breast cancer. 2. Menorrhagia. PROCEDURES PERFORMED: Robotic total laparoscopic hysterectomy with bilateral salpingo-oophorectomy. CATH LAB RADIOLOGY TECHNICIAN: Katelynn Parsons PA-C ESTIMATED BLOOD LOSS: 25 mL. ANTIBIOTICS: 2 g Ancef on-call to OR. ANESTHESIA: General endotracheal. COMPLICATIONS: None. PATHOLOGY: Uterus, cervix, bilateral tubes and ovaries. FINDINGS: 1. Normal-appearing bilateral fallopian tubes and ovaries and uterus. 2. Clear urine present in Downs catheter postprocedure and bladder was watertight to fluid distention over 300 mL. 3. Bilateral ureteral peristalsis visualized postprocedure. DISPOSITION: Recovery room, stable. DESCRIPTION OF PROCEDURE: The patient previously received informed consent in regard to surgery. She was taken back to the operating room, where she received a general endotracheal anesthetic agent without complications. She was then placed in the dorsal lithotomy position with the use of Theodore stirrups and prepped and draped in usual sterile fashion. Downs catheter had been placed at this time. A side-arm speculum placed in the vagina and the anterior lip of the cervix was grasped with single-tooth tenaculum . A size 6 cm DEEPTHI uterine manipulator with a 3.5 cm cervical cup was placed was removed. Attention was then turned to the abdomen. Speculum and tenaculum were removed. A 12 mm infraumbilical incision was made after infiltration of the area of trocars with 0.5% Marcaine with epinephrine. A Veress needle was then placed through the umbilical incision and the abdomen pressure was less than 5 mm. The abdomen was insufflated for the patient pressure of 15 approximately 4.5 L of carbon dioxide gas. Veress needle was then removed. A size 12 mm trocar was then placed. Laparoscope was introduced through trocar sleeve with proper entry confirmed and bilateral 8 mm trocar were placed under laparoscopic guidance in each lower quadrant and then a right upper quadrant 11-mm assistant oceanographer port. The patient was placed in Trendelenburg position and the robot was docked in usual fashion. I then broke scrub and then proceeded to carry out the surgery from the operative console while my assistants remained at the bedside. The uterus was elevated. The left infundibulopelvic ligament was identified. It was coagulated with bipolar fenestrated cautery and then transected with monopolar scissors. Serial coagulation of the broad ligament hugging close to uterus was carried out until the left round ligament was reached. It was coagulated and transected and the anterior leaf of the broad ligament was entered dissecting the vesicouterine peritoneum and layering technique past the cervical vaginal margin. The left uterine vessels were skeletonized and coagulated the internal cervical os region. This was carried out in likewise fashion on the right infundibulopelvic ligament again, coagulated and transected round ligament was carried out transecting this and then entering the anterior leaf of the broad ligament, dissecting the vesicouterine peritoneum in a layering technique. Intermittently, we distended the bladder to confirm its position and its intactness. Next, we dissected the bladder atraumatically past the cervical vaginal margin. The right uterine vessels again were skeletonized and coagulated in the internal cervical os region. We then proceeded to create the colpotomy posteriorly from 6 o'clock to 3 o'clock and 6 o'clock to 9 o'clock and then anteriorly from 12 o'clock to 3 o'clock and 12 o'clock to 9 o'clock. Uterine vessels were secured hemostatically. The specimen was delivered in the vaginal vault. A monopolar scissor was switched out for a Ananth needle tower truck driver. Then, my assistant oceanographer brought in a Stratafix suture. I closed the vaginal cuff starting from the right angle to the left angle back to the right angle in double layer full-thickness closure with good hemostasis. The extra suture and needle were then removed quadrant port. All the pedicle sites were irrigated and suctioned. Vaginal cuff was hemostatic. Bilateral ureteral peristalsis was visualized and the ureters below the operative sites. The robot was then undocked. We removed the trocar sleeves and then I closed the infraumbilical fascial defect with [id number] stitch of 0 Vicryl and the remainder of the trocar sites were closed with Monocryl 4-0 and Dermabond. The vaginal vault was checked and noted to be hemostatic with a sponge stick. The patient was awakened from anesthesia, transferred to recovery room in stable condition. Job ID: [id number]
== END 2020-09-06 09:25 | disposition home or self-care (01) ==
LOC: SDC 09:34 → 3SE 15:52 → SDC 09-06 09:25
PROVIDERS: ATTEND Obstetrics & Gynecology
DX: N80.0 Endometriosis of uterus (principal); N83.11 Corpus luteum cyst of right ovary; N73.6 Female pelvic peritoneal adhesions (postinfective); Z85.3 Personal history of malignant neoplasm of breast; Z79.899 Other long term (current) drug therapy; Z01.812 Encounter for preprocedural laboratory examination; Z20.828 Contact with and (suspected) exposure to other viral communicable diseases
CPT/HCPCS: 36415; 85027; 86850; 86900; 86901; 87635; 88307; J0690; J1100; J1885; J2250; J2270; J2405; J2550; J2704; J3010; S0028; U0003

== ENCOUNTER 2023-08-20 14:34 | Outpatient (CLI) | payer BC | END 2023-08-20 14:35 | disposition home or self-care (01) | LOC: BICMAMMO 14:34 | PROVIDERS: ATTEND Nurse Practitioner Women's Health | DX: N63.10 Unspecified lump in the right breast, unspecified quadrant (principal) | CPT/HCPCS: 77066; G0279 ==

== ENCOUNTER 2025-10-02 14:45 | Outpatient (CLI) | payer BC | END 2025-10-02 14:46 | disposition home or self-care (01) | LOC: SCSBT 14:45 | PROVIDERS: ATTEND Family Medicine | DX: Z13.820 Encounter for screening for osteoporosis (principal); Z78.0 Asymptomatic menopausal state; M85.89 Other specified disorders of bone density and structure, multiple sites | CPT/HCPCS: 77080 ==